=== PATIENT | female | born 1995 | race American Indian/Alaskan Native ===

== ENCOUNTER 2017-03-03 11:11 | Outpatient (CLI) | payer OTHER ==
[2017-03-03 11:29] VITALS: BP 111/75
== END 2017-03-03 13:22 | disposition home or self-care (01) ==
LOC: TRG 11:11
PROVIDERS: ATTEND Obstetrics & Gynecology
DX: O47.1 False labor at or after 37 completed weeks of gestation (principal); Z3A.39 39 weeks gestation of pregnancy
CPT/HCPCS: 59025